=== PATIENT | male | born 1950 | race Caucasian/White ===

== ENCOUNTER 2023-10-04 12:33 | Inpatient (IN) | payer BC, MEDICARE ==
--- NOTE | 2023-10-04 12:54 | ED ---
Arrhythmia/Palpitations HPI - General Stated Complaint: Afib Time Seen by Provider: 10/04/23 12:33 Source: patient, EMS, RN notes reviewed Mode of arrival: EMS Limitations: no limitations - History of Present Illness Initial Comments: 73-year-old male non-smoker with history of hypertension who states he had the onset this morning of some tingly feeling across his chest some diaphoresis he just did not feel well he reported to the local fire station and was found to have A-fib with RVR with heart rate ranging from the 120s to the 160s. No prior history of heart disease again he never smoked does not drink no new changes medications no illnesses no other current complaints or modifying factors. MD Complaint: rapid heart beat, atrial fibrillation - Related Data Allergies Allergy/AdvReac Type Severity Reaction Status Date / Time codeine AdvReac Nausea & Verified 10/04/23 12:50 Vomiting Review of Systems ROS Statement: Those systems with pertinent positive or pertinent negative responses have been documented in the HPI. ROS Other: All systems not noted in ROS Statement are negative. Past Medical History Past Medical History: Hypertension History of Any Multi-Drug Resistant Organisms: None Reported Past Surgical History: Orthopedic Surgery Smoking Status: Never smoker Past Alcohol Use History: None Reported Past Drug Use History: None Reported General Exam - General Exam Comments Initial Comments: This is a well-developed well-nourished awake alert oriented x 4 male Limitations: no limitations General appearance: alert, in no apparent distress Head exam: Present: atraumatic, normocephalic, normal inspection Eye exam: Present: normal appearance, PERRL, EOMI. Absent: scleral icterus, conjunctival injection, periorbital swelling ENT exam: Present: normal exam, mucous membranes moist Neck exam: Present: normal inspection, full ROM, other (No stridor JVD or bruits). Absent: tenderness, meningismus, lymphadenopathy Respiratory exam: Present: normal lung sounds bilaterally. Absent: respiratory distress, wheezes, rales, rhonchi, stridor Cardiovascular Exam: Present: tachycardia, irregular rhythm. Absent: systolic murmur, diastolic murmur, rubs, gallop, clicks GI/Abdominal exam: Present: soft, normal bowel sounds. Absent: distended, tenderness, guarding, rebound, rigid, bruit, pulsatile mass Extremities exam: Present: normal inspection, full ROM, normal capillary refill. Absent: tenderness, pedal edema, joint swelling, calf tenderness Back exam: Present: normal inspection Neurological exam: Present: alert, oriented X3, CN II-XII intact Psychiatric exam: Present: normal affect, normal mood Skin exam: Present: warm, dry, intact, normal color. Absent: rash Course Vital Signs 10/04/23 12:46 Temperature 97.1 F L Pulse Rate 142 H Respiratory 20 Rate Blood Pressure 155/105 O2 Sat by Pulse 96 Oximetry Medical Decision Making - Medical Decision Making Patient has improved with respect to heart rate but he is still in atrial fibrillation with rate bouncing between the 100s and 120s occasionally 130s much improved from the arrival. I did have a discussion with him regarding the findings thus far patient will be admitted with cardiology consultation. Was pt. sent in by a medical professional or institution ([facility], [facility], urgent care, hospital, or senior living...) When possible be specific @ -No Did you speak to anyone other than the patient for history (EMS, parent, family, police, friend...)? What history was obtained from this source @ -Paramedics upon arrival Did you review nursing and triage notes (agree or disagree)? Why? @ -I reviewed and agree with nursing and triage notes Were old charts reviewed (outside hosp., previous admission, EMS record, old EKG, old radiological studies, urgent care reports/EKG's, senior living records)? Report findings @ -No old charts were reviewed Differential Diagnosis (chest pain, altered mental status, abdominal pain women, abdominal pain men, vaginal bleeding, weakness, fever, dyspnea, syncope, headache, dizziness, GI bleed, back pain, seizure, CVA, palpatations, mental health, musculoskeletal)? @ -Rapid atrial fibrillation, atypical chest pain EKG interpreted by me (3pts min.). @ -As above EKG interpreted by me atrial fibrillation with a rapid ventricular response rate was 134 QRS duration 86 QT/QTc 285/364 nonspecific inferior changes PVCs noted X-rays interpreted by me (1pt min.). @ -Chest x-ray interpreted by me negative for acute process CT interpreted by me (1pt min.). @ -None done U/S interpreted by me (1pt. min.). @ -None done What testing was considered but not performed or refused? (CT, X-rays, U/S, labs)? Why? @ -None What meds were considered but not given or refused? Why? @ -None Did you discuss the management of the patient with other professionals (professionals i.e. , PA, [facility], lab, RT, psych nurse, social media project manager, supervisor farm equipment maintenance, teacher, correctional officer chief, family service caseworker)? Give summary @ -Dr. Meyer Was smoking cessation discussed for >3mins.? @ -No Was critical care preformed (if so, how long)? @ -35 minutes Were there social determinants of health that impacted care today? How? (Homelessness, low income, unemployed, alcoholism, drug addiction, transportation, low edu. Level, literacy, decrease access to med. care, senior care, rehab)? @ -No Was there de-escalation of care discussed even if they declined (Discuss DNR or withdrawal of care, Hospice)? DNR status @ -No What co-morbidities impacted this encounter? (DM, HTN, Smoking, COPD, CAD, Cancer, CVA, ARF, Chemo, Hep., AIDS, mental health diagnosis, sleep apnea, morbid obesity)? @ -Hypertension Was patient admitted / discharged? Hospital course, mention meds given and route, prescriptions, significant lab abnormalities, going to OR and other pertinent info. @ -Hospital course patient was admitted for inpatient evaluation and treatment for A-fib RVR Undiagnosed new problem with uncertain prognosis? @ -No Drug Therapy requiring intensive monitoring for toxicity (Heparin, Nitro, Insulin, Cardizem)? @ -No Were any procedures done? @ -No Diagnosis/symptom? @ -Fibrillation with a rapid ventricular response, hyperglycemia, history of hypertension Acute, or Chronic, or Acute on Chronic? @ -Acute Uncomplicated (without systemic symptoms) or Complicated (systemic symptoms)? @ -Complicated Side effects of treatment? @ -No Exacerbation, Progression, or Severe Exacerbation? @ -No Poses a threat to life or bodily function? How? (Chest pain, [place], CA, pneumonia, PE, COPD, DKA, ARF, appy, cholecystitis, CVA, Diverticulitis, Homicidal, Suicidal, threat to staff... and all critical care pts) @ -Potential, A-fib with RVR - Lab Data Result diagrams: 10/04/23 12:50 10/04/23 12:50 Lab Results 10/04/23 10/04/23 10/04/23 Range/Units 12:50 12:50 12:50 WBC 9.7 (3.8-10.6) k/uL RBC 5.36 (4.30-5.90) m/uL Hgb 15.6 (13.0-17.5) gm/dL Hct 50.5 (39.0-53.0) % MCV 94.2 (80.0-100.0) fL MCH 29.1 (25.0-35.0) pg MCHC 30.9 L (31.0-37.0) g/dL RDW 14.3 (11.5-15.5) % Plt Count 325 (150-450) k/uL MPV 7.4 Neutrophils % 68 % Lymphocytes % 16 % Monocytes % 10 % Eosinophils % 1 % Basophils % 1 % Neutrophils # 6.6 (1.3-7.7) k/uL Lymphocytes # 1.6 (1.0-4.8) k/uL Monocytes # 1.0 (0-1.0) k/uL Eosinophils # 0.1 (0-0.7) k/uL Basophils # 0.1 (0-0.2) k/uL PT 9.9 L (10.0-12.5) sec INR 0.9 (<1.2) APTT 22.2 (22.0-30.0) sec D-Dimer 0.39 (<0.60) mg/L FEU Sodium 144 (137-145) mmol/L Potassium 4.3 (3.5-5.1) mmol/L Chloride 105 (98-107) mmol/L Carbon Dioxide 28 (22-30) mmol/L Anion Gap 11 mmol/L BUN 25 H (9-20) mg/dL Creatinine 1.24 (0.66-1.25) mg/dL Est GFR (CKD-EPI)AfAm 68 (>60 ml/min/1.73 sqM) Est GFR (CKD-EPI)NonAf 59 (>60 ml/min/1.73 sqM) Glucose 154 H (74-99) mg/dL Calcium 10.3 H (8.4-10.2) mg/dL Magnesium 1.9 (1.6-2.3) mg/dL Total Bilirubin 0.8 (0.2-1.3) mg/dL AST 26 (17-59) U/L ALT 34 (4-49) U/L Alkaline Phosphatase 85 (38-126) U/L Troponin I (0.000-0.034) ng/mL Total Protein 8.1 (6.3-8.2) g/dL Albumin 4.9 (3.5-5.0) g/dL TSH 2.450 (0.465-4.680) mIU/L 10/04/23 Range/Units 12:50 WBC (3.8-10.6) k/uL RBC (4.30-5.90) m/uL Hgb (13.0-17.5) gm/dL Hct (39.0-53.0) % MCV (80.0-100.0) fL MCH (25.0-35.0) pg MCHC (31.0-37.0) g/dL RDW (11.5-15.5) % Plt Count (150-450) k/uL MPV Neutrophils % % Lymphocytes % % Monocytes % % Eosinophils % % Basophils % % Neutrophils # (1.3-7.7) k/uL Lymphocytes # (1.0-4.8) k/uL Monocytes # (0-1.0) k/uL Eosinophils # (0-0.7) k/uL Basophils # (0-0.2) k/uL PT (10.0-12.5) sec INR (<1.2) APTT (22.0-30.0) sec D-Dimer (<0.60) mg/L FEU Sodium (137-145) mmol/L Potassium (3.5-5.1) mmol/L Chloride (98-107) mmol/L Carbon Dioxide (22-30) mmol/L Anion Gap mmol/L BUN (9-20) mg/dL Creatinine (0.66-1.25) mg/dL Est GFR (CKD-EPI)AfAm (>60 ml/min/1.73 sqM) Est GFR (CKD-EPI)NonAf (>60 ml/min/1.73 sqM) Glucose (74-99) mg/dL Calcium (8.4-10.2) mg/dL Magnesium (1.6-2.3) mg/dL Total Bilirubin (0.2-1.3) mg/dL AST (17-59) U/L ALT (4-49) U/L Alkaline Phosphatase (38-126) U/L Troponin I <0.012 (0.000-0.034) ng/mL Total Protein (6.3-8.2) g/dL Albumin (3.5-5.0) g/dL TSH (0.465-4.680) mIU/L Critical Care Time Critical Care Time: Yes Total Critical Care Time: 35 Disposition Clinical Impression: Atrial fibrillation with rapid ventricular response, Hyperglycemia, History of hypertension Disposition: ADMITTED IP TO THIS HOSP Condition: Fair Referrals: Pierre Meyer MD [Primary Care Provider] - 1-2 days Time of Disposition: 14:06 Decision Date: 10/04/23 Decision Time: 14:06
[2023-10-04 13:07] LABS: Basophils # (A) 0.1 k/uL (0-0.2); Basophils % (A) 1 %; Eosinophils # (A) 0.1 k/uL (0-0.7); Eosinophils % (A) 1 %; HCT 50.5 % (39.0-53.0); HGB 15.6 gm/dL (13.0-17.5); Lymphocytes # (A) 1.6 k/uL (1.0-4.8); Lymphocytes % (A) 16 %; MCH 29.1 pg (25.0-35.0); MCHC 30.9 g/dL (31.0-37.0); MCV 94.2 fL (80.0-100.0); Mean Platelet Volume 7.4; Monocytes % (A) 10 %; Neutrophils # (A) 6.6 k/uL (1.3-7.7); Neutrophils % (A) 68 %; Platelet Count 325 k/uL (150-450); RBC 5.36 m/uL (4.30-5.90); RDW 14.3 % (11.5-15.5); WBC 9.7 k/uL (3.8-10.6)
[2023-10-04] MEDS: ASPIRIN 81 MG PO STA (13:08)
[2023-10-04] MEDS: DILTIAZEM DRIP BOLUS FROM BAG 1 MG SOLN IV ONE (13:10)
[2023-10-04] MEDS: DILTIAZEM 125 MG in SODIUM CHLORIDE 0.9% 100 ML IV SCH ×2 (13:10→15:10)
[2023-10-04 13:17] LABS: INR 0.9 (<1.2); Partial Thromboplastin Time 22.2 sec (22.0-30.0); Prothrombin Time 9.9 sec (10.0-12.5)
--- NOTE | 2023-10-04 13:20 | XR ---
EXAMINATION TYPE: XR chest 2V DATE OF EXAM: 10/04/2023 COMPARISON: None HISTORY: 73-year-old male dysrhythmia TECHNIQUE: PA and lateral views FINDINGS: The cardiomediastinal silhouette, aorta, and pulmonary vasculature are within normal limits. Lungs an d pleural spaces are clear. IMPRESSION: No acute cardiopulmonary process.
[2023-10-04 13:24] LABS: ALT 34 U/L (4-49); AST 26 U/L (17-59); African American GFR (CKD) 68 (>60 ml/min/1.73 sqM); Albumin 4.9 g/dL (3.5-5.0); Alkaline Phosphatase 85 U/L (38-126); Anion Gap 11 mmol/L; Blood Urea Nitrogen 25 mg/dL (9-20); Calcium 10.3 mg/dL (8.4-10.2); Carbon Dioxide 28 mmol/L (22-30); Chloride 105 mmol/L (98-107); Glucose 154 mg/dL (74-99); Magnesium 1.9 mg/dL (1.6-2.3); Non-African American GFR(CKD) 59 (>60 ml/min/1.73 sqM); Potassium 4.3 mmol/L (3.5-5.1); Sodium 144 mmol/L (137-145); Total Bilirubin 0.8 mg/dL (0.2-1.3); Total Protein 8.1 g/dL (6.3-8.2)
[2023-10-04] MEDS ORDERED: NALOXONE 0.4 MG/ML 1 ML VIAL IV PRN (14:07)
[2023-10-04] MEDS ORDERED: HEPARIN SODIUM 1,000 UN/ML (10ML VL) IV PRN (14:12)
[2023-10-04] MEDS: SODIUM CHLORIDE 0.9% 1,000 ML IV SCH (15:08)
[2023-10-04] MEDS: HEPARIN SODIUM 1,000 UN/ML (10ML VL) IV ONE (15:12)
[2023-10-04] MEDS: HEPARIN SOD,PORK IN 0.45% NACL 25,000 UNIT in 0.45% NACL 1 250ML.BAG IV SCH (15:12)
[2023-10-04 16:47] LABS: Basophils # (A) 0.1 k/uL (0-0.2); Basophils % (A) 1 %; Eosinophils # (A) 0.1 k/uL (0-0.7); Eosinophils % (A) 1 %; HCT 45.8 % (39.0-53.0); HGB 13.8 gm/dL (13.0-17.5); Hypochromasia Slight; Lymphocytes # (A) 1.4 k/uL (1.0-4.8); Lymphocytes % (A) 13 %; MCH 28.9 pg (25.0-35.0); MCHC 30.2 g/dL (31.0-37.0); MCV 95.8 fL (80.0-100.0); Mean Platelet Volume 7.7; Monocytes # (A) 0.6 k/uL (0-1.0); Monocytes % (A) 6 %; Neutrophils # (A) 8.3 k/uL (1.3-7.7); Neutrophils % (A) 76 %; Platelet Count 291 k/uL (150-450); RBC 4.78 m/uL (4.30-5.90); RDW 14.4 % (11.5-15.5); WBC 10.8 k/uL (3.8-10.6)
[2023-10-04] MEDS ORDERED: ALBUTEROL NEBULIZED 2.5 MG/3 ML INHALATION PRN (17:51)
--- NOTE | 2023-10-04 19:23 | P.HPIM ---
History of Present Illness H&P Date: 10/04/23 Chief Complaint: A-fib with RVR, shortness of breath, palpitation, type 2 di abetes, chronic HISTORY OF PRESENT ILLNESS: 73-year-old one of my office patient with active history of Type 2 diabetes, asthma, hypertension, hyperlipidemia, chronic neuropathy, mild PAD with never been diagnosed with coronary artery disease in the past. 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 He is very compliant to his medication and reconstruction he apparently had an onset this morning of tingly feeling across his chest with some diaphoresis and slight shortness of breath with mild palpitation he went to the local fire station where was hooked to a heart monitor and found to be very irregular with pulse rate running around 120s to 160 beats per minutes was advised to go to the emergency department. Presented to the emergency department with above complaint his pulse rate on his EKG was to be around 130 was started on Cardizem drip brought the pulse rate down to 70s still slightly bit irregular. Laboratory evaluation showed normal WBC, hemoglobin, hematocrit, electrolyte and kidney function, troponin was normal no BNP was done thyroid test and magnesium were done as well were normal calcium level was slightly bit elevated 10.3 with a blood sugar at 154. Chest x-ray shows no infiltrate or pneumonia no cardiomegaly. Patient was started on heparin drip beside Cardizem drip and admitted to the hospital for the above complaint. REVIEW OF SYSTEMS: CONSTITUTIONAL: Well-developed no acute respiratory distress. EYES: No icterus sclerae, no conjunctivitis. EARS, NOSE, MOUTH, THROAT, and FACE: No sore throat, lymphadenopathy, carotid bruits or deformity. RESPIRATORY: Slight shortness of breath no cough or wheezes.. CARDIOVASCULAR: Positive chest pressure and discomfort positive PND orthopnea palpitation. GASTROINTESTINAL: No Abd pain, Nausea or vomiting, no Diarrhea or constipation, No GI Bleed, no distention or masses. GENITOURINARY: Negative for Hematuria or UTI, no kidney stones. INTEGUMENT/BREAST: Negative for any muscular injury with mild osteoarthritis.. HEMATOLOGIC/LYMPHATIC: Negative for bleed or purpura. MUSCULOSKELTAL: Negative for Myalgia or arthralgia. NEURLOGICAL: No LOC, Sz or syncope, blurred vision dizziness or abnormality.. Mild neuropathy sensation lower extremity. BEHAVIORAL/PSYCH: Negative. ENDOCRINE: Negative. PHYSICAL EXAMINATION: General Appearance: Alert, cooperative, no distress, appears stated age. Neck HEENT: Supple, no lymphadenopathy, no thyroid enlargement, no carotid bruits. Lungs: Clear to auscultation without crackles or wheezes no rhonchi, no deformity. Chest Wall: Chest wall normal expansion with deep inspiration no tenderness and no deformity was found on exam, no costochondral pain or discomfort. Heart: Irregular rate and rhythm, S1, S2 positive S3, very low-grade systolic murmur in the apex radiating toward the left second costal space. Back: Symmetric, no curvature, ROM normal, no CVA tenderness. Abdomen: Soft, non-tender, bowel sounds active all four quadrants, no masses, no organomegaly. Extremities: Extremities normal, atraumatic, no cyanosis or edema. Slight lack of sensation on the big toe. Pulses: 2+ and symmetric. Skin: Skin color, texture, tugor normal, no rashes or lesions. Neurologic: Alert oriented x3 cranial nerves II through XII intact, no motor deficit, no abnormal balance or gait. ASSESSMENT AND PLAN: _Atrial fibrillation with rapid ventricular response: As a new onset patient never had A-fib in the past, continue Cardizem drip will start metoprolol succinate 25 mg Also Eliquis 5 mg twice a day to be started tomorrow morning and to quit heparin drip 2 hours after starting Eliquis, patient be seen cardiology, continue manager cardiac cath, CK troponin and BNP will be done in the morning. _Atypical angina with slight pressure discomfort: CK troponin was negative no ST elevation this point echocardiogram will be ordered in the morning patient be seen cardiology eventually need to go for stress test as well. _Type 2 diabetes: Has been on Farxiga and metformin hold off on metformin for no w continue glimepiride 2 mg daily Accu-Chek with sliding scale coverage will be done. _Hypertension: Was on lisinopril HCTZ 20/25 mg daily continue medication with the addition of metoprolol will be more helpful. _Hyperlipidemia: Remain on atorvastatin 20 mg daily. _Stage II chronic kidney disease mostly stage creatinine was good today continue hydration watch kidney function by tomorrow continue to watch his urine output. _Mild peripheral arterial disease has been seen cardiology on medical management only. _Mild diabetic neuropathy: Not on any medication currently. _Asthma: Remain on Singulair and Xopenex inhaler. _GI prophylaxis: Patient will be on pantoprazole daily. _DVT prophylaxis: Was on heparin drip will be switched to Eliquis tomorrow. CODE STATUS: Full code. Admit patient to the inpatient service for more than 2 night stay. Past Medical History Past Medical History: Hyperlipidemia, Hypertension, Osteoarthritis (OA) Additional Past Medical History / Comment(s): Small carotid tear History of Any Multi-Drug Resistant Organisms: None Reported Past Surgical History: Heart Catheterization, Orthopedic Surgery Additional Past Surgical History / Comment(s): Bilateral shoulders. Cataracts bilateral Past Anesthesia/Blood Transfusion Reactions: No Reported Reaction Smoking Status: Never smoker Past Alcohol Use History: None Reported Past Drug Use History: None Reported - Past Family History Mother Additional Family Medical History / Comment(s): Stroke at 87 and epilespy Medications and Allergies Home Medications Medication Instructions Recorded Confirmed Type Atorvastatin [Lipitor] 20 mg PO DAILY 10/04/23 10/04/23 History Dapagliflozin Propanediol [Farxiga] 10 mg PO DAILY 10/04/23 10/04/23 History Glimepiride [Amaryl] 2 mg PO DAILY 10/04/23 10/04/23 History Levalbuterol Hfa Inhaler [Xopenex 2 puff INHALATION RT-Q6H PRN 10/04/23 10/04/23 History Hfa Inhaler] Lisinopril-Hctz 20-25 mg 1 tab PO DAILY 10/04/23 10/04/23 History [Zestoretic 20-25] Montelukast [Singulair] 10 mg PO HS 10/04/23 10/04/23 History metFORMIN HCL 1,000 mg PO BID 10/04/23 10/04/23 History Allergies Allergy/AdvReac Type Severity Reaction Status Date / Time codeine AdvReac Nausea & Verified 10/04/23 15:04 Vomiting Physical Exam Vitals: Vital Signs Temp Pulse Pulse Resp BP BP Pulse Ox 10/04/23 17:00 91 18 129/87 97 10/04/23 16:00 98 F 114 H 98 16 136/83 98 10/04/23 14:51 114 H 18 115/77 96 10/04/23 12:46 97.1 F L 142 H 20 155/105 96 Intake and Output 10/04/23 10/04/23 10/04/23 06:59 14:59 22:59 Intake Total 10 Balance 10 Intake: Intake, IV Titration 10 Amount Diltiazem 125 mg In 10 Sodium Chloride 0.9% 100 ml @ 5 MG/HR 5 mls/hr IV .Q24H [facility] Rx#:[id number] Other: Weight 72.575 kg 72.575 kg Results CBC & Chem 7: 10/04/23 16:05 10/04/23 12:50 Labs: Abnormal Lab Results - Last 24 Hours (Table) 10/04/23 10/04/23 10/04/23 Range/Units 12:50 12:50 12:50 WBC (3.8-10.6) k/uL MCHC 30.9 L (31.0-37.0) g/dL Neutrophils # (1.3-7.7) k/uL PT 9.9 L (10.0-12.5) sec BUN 25 H (9-20) mg/dL Glucose 154 H (74-99) mg/dL Calcium 10.3 H (8.4-10.2) mg/dL 10/04/23 Range/Units 16:05 WBC 10.8 H (3.8-10.6) k/uL MCHC 30.2 L (31.0-37.0) g/dL Neutrophils # 8.3 H (1.3-7.7) k/uL PT (10.0-12.5) sec BUN (9-20) mg/dL Glucose (74-99) mg/dL Calcium (8.4-10.2) mg/dL Thrombosis Risk Factor Assmnt - Choose All That Apply Each Factor Represents 1 point: Obesity (BMI >25) Each Risk Factor Represents 2 Points: Age 61-74 years Thrombosis Risk Factor Assessment Total Risk Factor Score: 3 Thrombosis Risk Factor Assessment Level: Moderate Risk
[2023-10-04 20:08] LABS: Glucose,Whole Blood 206 mg/dL (70-110)
[2023-10-04] MEDS: METOPROLOL SUCCINATE (ER) 25 MG TAB.ER.24H PO SCH (20:48)
[2023-10-04] MEDS: MONTELUKAST 10 MG TAB PO SCH (20:48)
[2023-10-04] MEDS: INSULIN ASPART (NovoLOG) 100 UNIT/ML VIAL SQ SCH (20:49)
[2023-10-04] MEDS ORDERED: INSULIN ASPART (NovoLOG) 100 UNIT/ML VIAL SQ SCH (21:00)
[2023-10-05 05:21] LABS: INR 0.9 (<1.2); Prothrombin Time 10.2 sec (10.0-12.5)
[2023-10-05 05:32] LABS: HCT 42.2 % (39.0-53.0); HGB 13.3 gm/dL (13.0-17.5); MCH 29.9 pg (25.0-35.0); MCHC 31.6 g/dL (31.0-37.0); MCV 94.8 fL (80.0-100.0); Mean Platelet Volume 7.8; Platelet Count 261 k/uL (150-450); RBC 4.45 m/uL (4.30-5.90); RDW 14.3 % (11.5-15.5); WBC 6.9 k/uL (3.8-10.6)
[2023-10-05 05:37] LABS: ALT 30 U/L (4-49); AST 24 U/L (17-59); African American GFR (CKD) 77 (>60 ml/min/1.73 sqM); Albumin 3.6 g/dL (3.5-5.0); Alkaline Phosphatase 64 U/L (38-126); Anion Gap 5 mmol/L; Blood Urea Nitrogen 23 mg/dL (9-20); Calcium 8.8 mg/dL (8.4-10.2); Carbon Dioxide 30 mmol/L (22-30); Chloride 107 mmol/L (98-107); Glucose 125 mg/dL (74-99); Non-African American GFR(CKD) 67 (>60 ml/min/1.73 sqM); Potassium 4.2 mmol/L (3.5-5.1); Sodium 142 mmol/L (137-145); Total Bilirubin 0.9 mg/dL (0.2-1.3)
[2023-10-05 05:55] LABS: Eosinophils # (M) 0.07 k/uL (0-0.7); Lymphocytes # (M) 1.73 k/uL (1.0-4.8); Monocytes # (M) 0.41 k/uL (0-1.0); Neutrophils # (M) 4.69 k/uL (1.3-7.7); Neutrophils % (M) 68 %; Nucleated Red Blood Cells 0 /100 WBC (0-0); Total Cells Counted 100
[2023-10-05 05:56] LABS: RBC Morphology Normal
[2023-10-05 06:17] LABS: Glucose,Whole Blood 136 mg/dL (70-110)
[2023-10-05] MEDS: PANTOPRAZOLE 40 MG TABLET PO SCH (06:24)
[2023-10-05] MEDS: APIXABAN 5 MG TAB PO SCH (06:24)
[2023-10-05] MEDS: ATORVASTATIN 20 MG TAB PO SCH (08:30)
[2023-10-05] MEDS: LISINOPRIL-HCTZ 20-25 MG 1 EACH TAB PO SCH (08:30)
[2023-10-05] MEDS: METOPROLOL SUCCINATE (ER) 25 MG TAB.ER.24H PO SCH (08:30)
[2023-10-05] MEDS: DAPAGLIFLOZIN PROPANEDIOL 10 MG TABLET PO SCH (08:30)
[2023-10-05] MEDS: GLIMEPIRIDE 2 MG TAB PO SCH (08:30)
--- NOTE | 2023-10-05 08:30 | P.PN ---
Subjective Progress Note Date: 10/05/23 HISTORY OF PRESENT ILLNESS: 73-year-old one of my office patient with active history of Type 2 diabetes, asthma, hypertension, hyperlipidemia, chronic neuropathy, mild PAD with never been diagnosed with coronary artery disease in the past. Patient is very active volunteering at a [employer] on daily basis and still have a part-time job working over 40 hours a week between the 2 jobs without any complaint of chest pain or tightness. He is very compliant to his medication and reconstruction he apparently had an onset this morning of tingly feeling across his chest with some diaphoresis and slight shortness of breath with mild palpitation he went to the local [employer] station where was hooked to a heart monitor and found to be very irregular with pulse rate running around 120s to 160 beats per minutes was advised to go to the emergency department. Presented to the emergency department with above complaint his pulse rate on his EKG was to be around 130 was started on Cardizem drip brought the pulse rate down to 70s still slightly bit irregular. Laboratory evaluation showed normal WBC, hemoglobin, hematocrit, electrolyte and kidney function, troponin was n ormal no BNP was done thyroid test and magnesium were done as well were normal calcium level was slightly bit elevated 10.3 with a blood sugar at 154. Chest x-ray shows no infiltrate or pneumonia no cardiomegaly. Patient was started on heparin drip beside Cardizem drip and admitted to the hospital for the above complaint. October 05, 2023: Is doing very well pulse rate is down in the 70s still irregular he had 1 dose of metoprolol succinate yesterday he was switched to Eliquis 5 mg twice a day start this morning his heparin drip will be stopped also. His Cardizem drip Agree with the second dose of metoprolol succinate in the morning. He is scheduled to see cardiology and he is ct require to go for stress test whether this is need to be done as an inpatient or outpatient and will be rapid cardiology. Blood pressure was slightly low his lisinopril and hydrochlorothiazide can be reduced to 10/12.5 mg instead of 20 mg. Patient will be discharged either later today or tomorrow morning. REVIEW OF SYSTEMS: CONSTITUTIONAL: Well-developed no acute respiratory distress. EYES: No icterus sclerae, no conjunctivitis. EARS, NOSE, MOUTH, THROAT, and FACE: No sore throat, lymphadenopathy, carotid bruits or deformity. RESPIRATORY: Slight shortness of breath no cough or wheezes.. CARDIOVASCULAR: Positive chest pressure and discomfort positive PND orthopnea palpitation. GASTROINTESTINAL: No Abd pain, Nausea or vomiting, no Diarrhea or constipation, No GI Bleed, no distention or masses. GENITOURINARY: Negative for Hematuria or UTI, no kidney stones. INTEGUMENT/BREAST: Negative for any muscular injury with mild osteoarthritis.. HEMATOLOGIC/LYMPHATIC: Negative for bleed or purpura. MUSCULOSKELTAL: Negative for Myalgia or arthralgia. NEURLOGICAL: No LOC, Sz or syncope, blurred vision dizziness or abnormality.. Mild neuropathy sensation lower extremity. BEHAVIORAL/PSYCH: Negative. ENDOCRINE: Negative. PHYSICAL EXAMINATION: General Appearance: Alert, cooperative, no distress, appears stated age. Neck HEENT: Supple, no lymphadenopathy, no thyroid enlargement, no carotid bruits. Lungs: Clear to auscultation without crackles or wheezes no rhonchi, no deformity. Chest Wall: Chest wall normal expansion with deep inspiration no tenderness and no deformity was found on exam, no costochondral pain or discomfort. Heart: Irregular rate and rhythm, S1, S2 positive S3, very low-grade systolic murmur in the apex radiating toward the left second costal space. Back: Symmetric, no curvature, ROM normal, no CVA tenderness. Abdomen: Soft, non-tender, bowel sounds active all four quadrants, no masses, no organomegaly. Extremities: Extremities normal, atraumatic, no cyanosis or edema. Slight lack of sensation on the big toe. Pulses: 2+ and symmetric. Skin: Skin color, texture, tugor normal, no rashes or lesions. Neurologic: Alert oriented x3 cranial nerves II through XII intact, no motor deficit, no abnormal balance or gait. ASSESSMENT AND PLAN: _Atrial fibrillation with rapid ventricular response: Much better so far continue metoprolol succinate up to twice a day will be off Cardizem drip today continue Eliquis 5 mg twice a day as any medication. Patient is seeing cardiology further workup including an echo and stress test to be done. _Atypical angina with slight pressure discomfort: CK with troponin were negative but patient will benefit from going for stress test specially with his complaint. _Type 2 diabetes: Has been on Farxiga and metformin hold off on metformin for n ow continue glimepiride 2 mg daily Accu-Chek with sliding scale coverage will be done. _Hypertension: Blood pressure becomes slightly below will reduce lisinopril down to 10 mg and he is on Toprol-XL 25 mg twice a day. _Hyperlipidemia: Remain on atorvastatin 20 mg daily. _Stage II chronic kidney disease mostly stage creatinine was good today continue hydration watch kidney function by tomorrow continue to watch his urine output. _Mild peripheral arterial disease has been seen cardiology on medical management only. _Mild diabetic neuropathy: Not on any medication currently. _Asthma: Remain on Singulair and Xopenex inhaler. _GI prophylaxis: Patient will be on pantoprazole daily. Planning: Switch IV medication to oral with metoprolol succinate 25 mg twice a day off Cardizem drip and off heparin drip on Eliquis 5 mg twice a day, patient will have an echocardiogram will be seen cardiology and plan hopefully to do stress test as an inpatient if not can be discharged home and do stress test as an outpatient but with sign and symptom he had of angina with his A-fib will be a good idea to study his heart slight with to make sure is no sign of blockage or coronary artery disease. Many occasion patient hopefully will be discharged either later on today or tomorrow morning. Objective - Vital Signs Vital signs: Vital Signs Temp 98.0 F 10/05/23 04:00 Pulse 66 10/05/23 04:00 Resp 18 10/05/23 04:00 BP 93/51 10/05/23 04:00 Pulse Ox 97 10/05/23 04:00 FiO2 Intake & Output 10/04/23 10/04/23 10/05/23 06:59 18:59 06:59 Intake Total 10 214.866 Balance 10 214.866 Weight 72.575 kg Intake: Intake, IV Titration 10 214.866 Amount Diltiazem 125 mg In 10 80.5 Sodium Chloride 0.9% 100 ml @ 5 MG/HR 5 mls/hr IV .Q24H [facility] Rx#:[id number] Heparin Sod,Pork in 0.45% 59.366 NaCl 25,000 unit In 0.45 % NaCl 1 250ml.bag @ 12 UNITS/KG/HR 8.709 mls/hr IV .Q24H [facility] Rx#: [id number] Sodium Chloride 0.9% 1, 75 000 ml @ 75 mls/hr IV . [id number] [facility] Rx#:[id number] Other: Voiding Method Toilet # Voids 1 - Labs CBC & Chem 7: 10/05/23 04:07 10/05/23 04:07 Labs: Abnormal Lab Results - Last 24 Hours (Table) 10/04/23 10/04/23 10/04/23 Range/Units 12:50 12:50 12:50 WBC (3.8-10.6) k/uL MCHC 30.9 L (31.0-37.0) g/dL Neutrophils # (1.3-7.7) k/uL PT 9.9 L (10.0-12.5) sec APTT (22.0-30.0) sec BUN 25 H (9-20) mg/dL Glucose 154 H (74-99) mg/dL POC Glucose (mg/dL) (70-110) mg/dL Calcium 10.3 H (8.4-10.2) mg/dL Total Protein (6.3-8.2) g/dL 10/04/23 10/04/23 10/04/23 Range/Units 16:05 20:06 21:08 WBC 10.8 H (3.8-10.6) k/uL MCHC 30.2 L (31.0-37.0) g/dL Neutrophils # 8.3 H (1.3-7.7) k/uL PT (10.0-12.5) sec APTT 42.5 H (22.0-30.0) sec BUN (9-20) mg/dL Glucose (74-99) mg/dL POC Glucose (mg/dL) 206 H (70-110) mg/dL Calcium (8.4-10.2) mg/dL Total Protein (6.3-8.2) g/dL 10/05/23 10/05/23 10/05/23 Range/Units 04:07 04:07 06:16 WBC (3.8-10.6) k/uL MCHC (31.0-37.0) g/dL Neutrophils # (1.3-7.7) k/uL PT (10.0-12.5) sec APTT 49.5 H (22.0-30.0) sec BUN 23 H (9-20) mg/dL Glucose 125 H (74-99) mg/dL POC Glucose (mg/dL) 136 H (70-110) mg/dL Calcium (8.4-10.2) mg/dL Total Protein 6.0 L (6.3-8.2) g/dL
[2023-10-05 11:19] LABS: Glucose,Whole Blood 199 mg/dL (70-110)
--- NOTE | 2023-10-05 14:18 | P.CRDCN ---
History of Present Illness Consult date: 10/05/23 Consult reason: atrial fibrillation (With RVR) History of present illness: History of present illness: This is a 73-year-old male patient of Dr. Martinez with past medical history of diabetes mellitus type 2, hypertension, dyslipidemia, mild carotid artery disease, history of syncope. We have been asked to evaluate the patient for A- fib with RVR. Patient was last seen in the office on 03/02/2023 following a hospitalization at [facility] for which she was evaluated for syncope. Patient was complaining of feeling tired and fatigued. Patient had an abnormal EKG with sinus rhythm with inferior T wave abnormalities. It was r ecommended at that time that patient undergo exercise stress echocardiogram but it appears the patient did not have follow-up. Patient will presented with A- fib with RVR currently rate controlled. He has been started on Toprol-XL as well as Eliquis and echocardiogram has also been ordered by his attending. EKG atrial fibrillation with ventricular rate of 134 bpm with PVCs Chest x-ray: No acute process. INR 0.9. Electrolytes are normal. BUN 23 creatinine 1.11. Troponins negative x 3 Schuyler. proBNP 666. Home cardiac medications: Atorvastatin 20 mg daily, Farxiga 10 mg daily, lisinoprilhydrochlorothiazide 20-25 mg 1 daily. Echocardiogram performed on 02/17/2023 at [facility] revealed EF of 55 to 60%, mild AR, mild MR, mild TR.. Review Of Systems: At the time of my exam: CONSTITUTIONAL: Denies fever or chills. HEENT: Denies blurred vision, vision changes, or eye pain. Denies hemoptysis CARDIOVASCULAR: Denies chest pain. Denies orthopnea. Denies PND. Denies palpitations RESPIRATORY: Denies shortness of breath. GASTROINTESTINAL: Denies abdominal pain. Denies nausea or vomiting. HEMATOLOGIC: Denies bleeding disorders. GENITOURINARY: Denies any blood in urine. SKIN: Denies pruitis. Denies rash. Physical examination: Gen: This is a 73-year-old male in no acute distress. VS: reviewed blood pressure 123/65, heart rate 67, pulse ox 97% on room air. WBC 6.9, hemoglobin 13.3. HEENT: Head is atraumatic, normocephalic. Pupils equal, round. Sclerae is anicteric. NECK: Supple. No JVD. LUNGS: Clear to auscultation. No wheezes or rhonchi. No intercostal retractio ns. HEART: Regular rate and rhythm. No murmur. ABDOMEN: Soft No tenderness. EXTREMITIES: No pedal edema. No calf tenderness. NEUROLOGICAL: Patient is awake, alert and oriented x3. Assessment: New onset paroxysmal A-fib with RVR, currently rate controlled Diabetes mellitus type 2 Hypertension Dyslipidemia Mild carotid artery disease History of syncope Plan: Continue patient's home cardiac medications Continue Eliquis and Toprol-XL Obtain 2-D echocardiogram and Doppler study to assess cardiac structure and function If echocardiogram is unremarkable, patient is cleared for discharge from ia rdiology and may follow-up with Dr. Martinez in the office in 1 to 2 weeks. Thank you kindly for this consultation. Nurse practitioner note has been reviewed, I agree with documented findings and plan of care. Patient was seen and examined. Past Medical History Past Medical History: Hyperlipidemia, Hypertension, Osteoarthritis (OA) Additional Past Medical History / Comment(s): Small carotid tear History of Any Multi-Drug Resistant Organisms: None Reported Past Surgical History: Heart Catheterization, Orthopedic Surgery Additional Past Surgical History / Comment(s): Bilateral shoulders. Cataracts bilateral Past Anesthesia/Blood Transfusion Reactions: No Reported Reaction Smoking Status: Never smoker Past Alcohol Use History: None Reported Past Drug Use History: None Reported - Past Family History Mother Additional Family Medical History / Comment(s): Stroke at 85 and epilespy Medications and Allergies Home Medications Medication Instructions Recorded Confirmed Type Atorvastatin [Lipitor] 20 mg PO DAILY 10/04/23 10/04/23 History Dapagliflozin Propanediol [Farxiga] 10 mg PO DAILY 10/04/23 10/04/23 History Glimepiride [Amaryl] 2 mg PO DAILY 10/04/23 10/04/23 History Levalbuterol Hfa Inhaler [Xopenex 2 puff INHALATION RT-Q6H PRN 10/04/23 10/04/23 History Hfa Inhaler] Lisinopril-Hctz 20-25 mg 1 tab PO DAILY 10/04/23 10/04/23 History [Zestoretic 20-25] Montelukast [Singulair] 10 mg PO HS 10/04/23 10/04/23 History metFORMIN HCL 1,000 mg PO BID 10/04/23 10/04/23 History Allergies Allergy/AdvReac Type Severity Reaction Status Date / Time codeine AdvReac Nausea & Verified 10/04/23 15:04 Vomiting Physical Exam Vitals: Vital Signs Temp Pulse Pulse Resp BP BP Pulse Ox 10/05/23 08:20 97.9 F 67 20 123/65 97 10/05/23 04:00 98.0 F 66 18 93/51 97 10/05/23 01:15 61 18 10/04/23 23:44 97.6 F 61 18 107/76 98 10/04/23 20:00 97.8 F 61 18 129/74 97 10/04/23 17:53 18 10/04/23 17:00 91 18 129/87 97 10/04/23 16:00 98 F 114 H 98 16 136/83 98 10/04/23 14:51 114 H 18 115/77 96 10/04/23 12:46 97.1 F L 142 H 20 155/105 96 Intake and Output 10/04/23 10/05/23 10/05/23 22:59 06:59 14:59 Intake Total 144.366 80.5 216.352 Balance 144.366 80.5 216.352 Intake: Intake, IV Titration 144.366 80.5 106.352 Amount Diltiazem 125 mg In 10 80.5 Sodium Chloride 0.9% 100 ml @ 5 MG/HR 5 mls/hr IV .Q24H [facility] Rx#:[id number] Heparin Sod,Pork in 0.45% 59.366 106.352 NaCl 25,000 unit In 0.45 % NaCl 1 250ml.bag @ 12 UNITS/KG/HR 8.709 mls/hr IV .Q24H [facility] Rx#: [id number] Sodium Chloride 0.9% 1, 75 000 ml @ 75 mls/hr IV . [id number] [facility] Rx#:[id number] Oral 110 Other: Voiding Method Toilet Toilet # Voids 1 1 Weight 72.575 kg Results 10/05/23 04:07 10/05/23 04:07 Cardiac Enzymes 10/04/23 10/04/23 10/04/23 Range/Units 12:50 12:50 16:05 AST 26 (17-59) U/L Troponin I <0.012 <0.012 (0.000-0.034) ng/mL 10/04/23 10/05/23 Range/Units 21:08 04:07 AST 24 (17-59) U/L Troponin I <0.012 (0.000-0.034) ng/mL Coagulation 10/04/23 10/04/23 10/05/23 Range/Units 12:50 21:08 04:07 PT 9.9 L 10.2 (10.0-12.5) sec APTT 22.2 42.5 H (22.0-30.0) sec 10/05/23 Range/Units 04:07 PT (10.0-12.5) sec APTT 49.5 H (22.0-30.0) sec CBC 10/04/23 10/04/23 10/05/23 Range/Units 12:50 16:05 04:07 WBC 9.7 10.8 H 6.9 (3.8-10.6) k/uL RBC 5.36 4.78 4.45 (4.30-5.90) m/uL Hgb 15.6 13.8 13.3 (13.0-17.5) gm/dL Hct 50.5 45.8 42.2 (39.0-53.0) % Plt Count 325 291 261 (150-450) k/uL Comprehensive Metabolic Panel 10/04/23 10/05/23 Range/Units 12:50 04:07 Sodium 144 142 (137-145) mmol/L Potassium 4.3 4.2 (3.5-5.1) mmol/L Chloride 105 107 (98-107) mmol/L Carbon Dioxide 28 30 (22-30) mmol/L BUN 25 H 23 H (9-20) mg/dL Creatinine 1.24 1.11 (0.66-1.25) mg/dL Glucose 154 H 125 H (74-99) mg/dL Calcium 10.3 H 8.8 (8.4-10.2) mg/dL AST 26 24 (17-59) U/L ALT 34 30 (4-49) U/L Alkaline Phosphatase 85 64 (38-126) U/L Total Protein 8.1 6.0 L (6.3-8.2) g/dL Albumin 4.9 3.6 (3.5-5.0) g/dL Current Medications Generic Name Dose Route Start Last Admin Trade Name Freq PRN Reason Stop Dose Admin Albuterol Sulfate 2.5 mg 10/04/23 17:51 Albuterol Nebulized 2.5 Mg/3 Ml INHALATION RT-Q6H PRN Shortness Of Breath Apixaban 5 mg 10/05/23 07:00 10/05/23 06:24 Apixaban 5 Mg Tab PO 5 mg BID [facility] Administration Protocol Atorvastatin Calcium 20 mg 10/05/23 09:00 10/05/23 08:30 Atorvastatin 20 Mg Tab PO 20 mg DAILY [facility] Administration Dapagliflozin 10 mg 10/05/23 09:00 10/05/23 08:30 Dapagliflozin Propanediol 10 Mg Tablet PO 10 mg DAILY [facility] Administration Glimepiride 2 mg 10/05/23 09:00 10/05/23 08:30 Glimepiride 2 Mg Tab PO 2 mg DAILY [facility] Administration Lisinopril/HCTZ 1 each 10/05/23 09:00 10/05/23 08:30 Lisinopril-Hctz 20-25 Mg 1 Each Tab PO 1 each DAILY [facility] Administration Heparin Sodium (Porcine) 0 unit 10/04/23 14:12 Heparin Sodium 1,000 Un/Ml (10ml Vl) IV PER PROTOCOL PRN Low PTT Protocol Diltiazem HCl 125 mg/ Sodium 125 mls @ 5 mls/hr 10/04/23 12:45 10/04/23 23:13 Chloride IV 5 mg/hr .Q24H [facility] 5 mls/hr Administration 5 MG/HR Sodium Chloride 1,000 mls @ 75 mls/hr 10/04/23 14:15 10/05/23 03:49 Saline 0.9% IV 75 mls/hr .[id number] [facility] Administration Diltiazem HCl 125 mg/ Sodium 125 mls @ 10 mls/hr 10/04/23 14:15 10/05/23 03:49 Chloride IV Not Given .[id number] [facility] 10 MG/HR Heparin Sodium/Sodium Chloride 250 mls @ 8.709 mls/hr 10/04/23 14:15 10/05/23 08:29 25,000 unit/ Sodium Chloride IV 0 units/kg/hr .Q24H [facility] 0 mls/hr Titration Protocol 12 UNITS/KG/HR Insulin Aspart 0 unit 10/04/23 21:00 10/05/23 06:22 Insulin Aspart (Novolog) 100 Unit/Ml Vial SQ Not Given ACHS [facility] Protocol Metoprolol Succinate 25 mg 10/05/23 09:00 10/05/23 08:30 Metoprolol Succinate (Er) 25 Mg Tab.Er.24h PO 25 mg BID [facility] Administration Montelukast Sodium 10 mg 10/04/23 21:00 10/04/23 20:48 Montelukast 10 Mg Tab PO 10 mg HS [facility] Administration Naloxone HCl 0.2 mg 10/04/23 14:07 Naloxone 0.4 Mg/Ml 1 Ml Vial IV Q2M PRN Opioid Reversal Pantoprazole Sodium 40 mg 10/05/23 07:30 10/05/23 06:24 Pantoprazole 40 Mg Tablet PO 40 mg [id number] [facility] Administration Intake and Output 10/04/23 10/05/23 10/05/23 22:59 06:59 14:59 Intake Total 144.366 80.5 216.352 Balance 144.366 80.5 216.352 Intake: Intake, IV Titration 144.366 80.5 106.352 Amount Diltiazem 125 mg In 10 80.5 Sodium Chloride 0.9% 100 ml @ 5 MG/HR 5 mls/hr IV .Q24H [facility] Rx#:[id number] Heparin Sod,Pork in 0.45% 59.366 106.352 NaCl 25,000 unit In 0.45 % NaCl 1 250ml.bag @ 12 UNITS/KG/HR 8.709 mls/hr IV .Q24H [facility] Rx#: [id number] Sodium Chloride 0.9% 1, 75 000 ml @ 75 mls/hr IV . [id number] [facility] Rx#:[id number] Oral 110 Other: Voiding Method Toilet Toilet # Voids 1 1 Weight 72.575 kg 10/05/23 04:07 10/05/23 04:07
--- NOTE | 2023-10-05 15:40 | P.DS ---
Providers Date of admission: 10/04/23 14:07 Attending physician: Pierre Meyer Consults: 10/04/23 14:07 Consult Physician Routine Consulting Provider: Marquise Park Consult Reason/Comments: A-fib RVR Do you want consulting provider notified?: Yes Primary care physician: Pierre Meyer [facility] Course: HISTORY OF PRESENT ILLNESS: 73-year-old one of my office patient with active history of Type 2 diabetes, asthma, hypertension, hyperlipidemia, chronic neuropathy, mild PAD with never been diagnosed with coronary artery disease in the past. Patient is very active volunteering at a [employer] on daily basis and still have a part-time job working over 40 hours a week between the 2 jobs without any complaint of chest pain or tightness. He is very compliant to his medication and reconstruction he apparently had an onset this morning of tingly feeling across his chest with some diaphoresis and slight shortness of breath with mild palpitation he went to the local [facility] station where was hooked to a heart monitor and found to be very irregular with pulse rate running around 120s to 160 beats per minutes was advised to go to the emergency department. Presented to the emergency department with above complaint his pulse rate on his EKG was to be around 130 was started on Cardizem drip brought the pulse rate down to 70s still slightly bit irregular. Laboratory evaluation showed normal WBC, hemoglobin, hematocrit, electrolyte and kidney function, troponin was normal no BNP was done thyroid test and magnesium were done as well were normal calcium level was slightly bit elevated 10.3 with a blood sugar at 154. Chest x-ray shows no infiltrate or pneumonia no cardiomegaly. Patient was started on heparin drip beside Cardizem drip and admitted to the hospital for the above complaint. October 05, 2023: Is doing very well pulse rate is down in the 70s still irregular he had 1 dose of metoprolol succinate yesterday he was switched to Eliquis 5 mg twice a day start this morning his heparin drip will be stopped also. His Cardizem drip Agree with the second dose of metoprolol succinate in the morning. He is scheduled to see cardiology and he is ct require to go for stress test whether this is need to be done as an inpatient or outpatient and will be rapid cardiology. Blood pressure was slightly low his lisinopril and hydrochlorothiazide can be reduced to 10/12.5 mg instead of 20 mg. Patient will be discharged either later today or tomorrow morning. REVIEW OF SYSTEMS: CONSTITUTIONAL: Well-developed no acute respiratory distress. EYES: No icterus sclerae, no conjunctivitis. EARS, NOSE, MOUTH, THROAT, and FACE: No sore throat, lymphadenopathy, carotid bruits or deformity. RESPIRATORY: Slight shortness of breath no cough or wheezes.. CARDIOVASCULAR: Positive chest pressure and discomfort positive PND orthopnea palpitation. GASTROINTESTINAL: No Abd pain, Nausea or vomiting, no Diarrhea or constipation, No GI Bleed, no distention or masses. GENITOURINARY: Negative for Hematuria or UTI, no kidney stones. INTEGUMENT/BREAST: Negative for any muscular injury with mild osteoarthritis.. HEMATOLOGIC/LYMPHATIC: Negative for bleed or purpura. MUSCULOSKELTAL: Negative for Myalgia or arthralgia. NEURLOGICAL: No LOC, Sz or syncope, blurred vision dizziness or abnormality.. Mild neuropathy sensation lower extremity. BEHAVIORAL/PSYCH: Negative. ENDOCRINE: Negative. PHYSICAL EXAMINATION: General Appearance: Alert, cooperative, no distress, appears stated age. Neck HEENT: Supple, no lymphadenopathy, no thyroid enlargement, no carotid bruits. Lungs: Clear to auscultation without crackles or wheezes no rhonchi, no deformity. Chest Wall: Chest wall normal expansion with deep inspiration no tenderness and no deformity was found on exam, no costochondral pain or discomfort. Heart: Irregular rate and rhythm, S1, S2 positive S3, very low-grade systolic murmur in the apex radiating toward the left second costal space. Back: Symmetric, no curvature, ROM normal, no CVA tenderness. Abdomen: Soft, non-tender, bowel sounds active all four quadrants, no masses, no organomegaly. Extremities: Extremities normal, atraumatic, no cyanosis or edema. Slight lack of sensation on the big toe. Pulses: 2+ and symmetric. Skin: Skin color, texture, tugor normal, no rashes or lesions. Neurologic: Alert oriented x3 cranial nerves II through XII intact, no motor deficit, no abnormal balance or gait. ASSESSMENT AND PLAN: _Atrial fibrillation with rapid ventricular response: Much better so far continue metoprolol succinate up to twice a day will be off Cardizem drip today continue Eliquis 5 mg twice a day as any medication. Patient is seeing cardiology further workup including an echo and stress test to be done. _Atypical angina with slight pressure discomfort: CK with troponin were negative but patient will benefit from going for stress test specially with his complaint. _Type 2 diabetes: Has been on Farxiga and metformin hold off on metformin for now continue glimepiride 2 mg daily Accu-Chek with sliding scale coverage will be done. _Hypertension: Blood pressure becomes slightly below will reduce lisinopril down to 10 mg and he is on Toprol-XL 25 mg twice a day. _Hyperlipidemia: Remain on atorvastatin 20 mg daily. _Stage II chronic kidney disease mostly stage creatinine was good today continue hydration watch kidney function by tomorrow continue to watch his urine output. _Mild peripheral arterial disease has been seen cardiology on medical management only. _Mild diabetic neuropathy: Not on any medication currently. _Asthma: Remain on Singulair and Xopenex inhaler. _GI prophylaxis: Patient will be on pantoprazole daily. Planning: Switch IV medication to oral with metoprolol succinate 25 mg twice a day and heparin drip was switched to Eliquis 5 mg twice a day patient seems to tolerate medication very well. Hospital course: He presented to the emergency department on October 04, 2023 with complaint of slight tightness and pressure with mild palpitation went to the [facility] department and found his pulse rate to be irregular at 100 2260 bpm very irregular. By the time he mated to the emergency department was in A-fib with RVR of 130s 150 beats per minutes was started on heparin drip and Cardizem drip at 5 mg an hour titrated up to 10 mg an hour to keep his pulse below 100. His CK and troponin came back negative, proBNP was not elevated, his EKG did not show any major change. Patient was kept in the hospital overnight start him on Eliquis 5 mg twice a day and metoprolol succinate 25 mg. His Cardizem drip start decrease the dose gradually titrate his metoprolol succinate up to 25 mg twice a day was able to tolerate it with no major complication or side effect. Patient was seen cardiology following day echocardiogram did not show any major impact on his heart function with well-preserved ejection fraction. Patient be discharged home today on oral metoprolol and Eliquis will be seen back in the office on 08 October will be seen cardiology on 12 October need to go to at least stress test by Seeing cardiology and if able to tolerate his medication well no need for any intervention afterward. Time spent on discharging patient was over 35 minutes. Patient Condition at Discharge: Fair Plan - Discharge Summary New Discharge Prescriptions: New Pantoprazole [Protonix] 40 mg PO AC-BRKFST #30 tab Apixaban [Eliquis] 5 mg PO BID #60 tab Metoprolol Succinate (ER) [Toprol XL] 25 mg PO BID #60 tab Continue Levalbuterol Hfa Inhaler [Xopenex Hfa Inhaler] 2 puff INHALATION RT-Q6H PRN PRN Reason: Shortness Of Breath Dapagliflozin Propanediol [Farxiga] 10 mg PO DAILY metFORMIN HCL 1,000 mg PO BID Atorvastatin [Lipitor] 20 mg PO DAILY Lisinopril-Hctz 20-25 mg [Zestoretic 20-25] 1 tab PO DAILY Montelukast [Singulair] 10 mg PO HS Glimepiride [Amaryl] 2 mg PO DAILY Discharge Medication List Atorvastatin [Lipitor] 20 mg PO DAILY 10/04/23 [History] Dapagliflozin Propanediol [Farxiga] 10 mg PO DAILY 10/04/23 [History] Glimepiride [Amaryl] 2 mg PO DAILY 10/04/23 [History] Levalbuterol Hfa Inhaler [Xopenex Hfa Inhaler] 2 puff INHALATION RT-Q6H PRN 10/04/23 [History] Lisinopril-Hctz 20-25 mg [Zestoretic 20-25] 1 tab PO DAILY 10/04/23 [History] Montelukast [Singulair] 10 mg PO HS 10/04/23 [History] metFORMIN HCL 1,000 mg PO BID 10/04/23 [History] Apixaban [Eliquis] 5 mg PO BID #60 tab 10/05/23 [Rx] Metoprolol Succinate (ER) [Toprol XL] 25 mg PO BID #60 tab 10/05/23 [Rx] Pantoprazole [Protonix] 40 mg PO AC-BRKFST #30 tab 10/05/23 [Rx] Follow up Appointment(s)/Referral(s): Garrett Manuel DO [STAFF PHYSICIAN] - 10/13/23 11:15 am Pierre Meyer MD [Primary Care Provider] - 10/09/23 9:00 am (With Rylan PIERRE, bring copy of current medications.) Patient Instructions/Handouts: A-fib (Atrial Fibrillation) (DC) Discharge Disposition: HOME SELF-CARE
[2023-10-05 16:07] LABS: Glucose,Whole Blood 234 mg/dL (70-110)
[2023-10-05 16:35] VITALS: BP 104/70; PULSE 62; RESP 16; TEMP 97.7
--- NOTE | 2023-10-05 18:08 | CA ---
Transthoracic Echo Report Name: Bimal Mancera Age: 73 Gender: M : 1950 Exam Date: 10/05/2023 08:39 Exam Location: [facility] Ht (in): 67 Wt (lb): 160 Ordering Physician: Pierre eMyer MD Attending/Referring Phys: Supervisor Compressed [employer]ast Sherly Patterson RCS Procedure CPT: Indications: lvfunction Cardiac Hx: Technical Quality: Technically difficult study Contrast 1: Definity Total Dose (mL): 2 Contrast 2: Total Dose (mL): MEASUREMENTS (Male / Female) Normal Values 2D ECHO LV Diastolic Diameter PLAX 4.4 cm 4.2 - 5.9 / 3.9 - 5.3 cm LV Systolic Diameter PLAX 2.9 cm IVS Diastolic Thickness 0.6 cm 0.6 - 1.0 / 0.6 - 0.9 cm LVPW Diastolic Thickness 0.9 cm 0.6 - 1.0 / 0.6 - 0.9 cm LV Relative Wall Thickness 0.3 RV Internal Dim ED PLAX 3.0 cm LVOT Diameter 2.0 cm LV Diastolic Volume MOD BP 86.4 cm??? 67 - 155 / 56 - 104 cm??? LV Systolic Volume MOD BP 32.5 cm??? 22 - 58 / 19 - 49 cm??? LV Ejection Fraction MOD BP 62.4 % >= 55 % LV Cardiac Index MOD BP 1882.0 cm???/min???m??? LV Diastolic Volume MOD 4C 97.4 cm??? LV Systolic Volume MOD 4C 37.2 cm??? LV Ejection Fraction MOD 4C 61.8 % LV Cardiac Index MOD 4C 2100.8 cm???/min???m??? LV Diastolic Length 4C 7.9 cm LV Systolic Length 4C 6.3 cm LV Diastolic Volume MOD 2C 76.8 cm??? LV Systolic Volume MOD 2C 28.8 cm??? LV Ejection Fraction MOD 2C 62.5 % LV Cardiac Index MOD 2C 1676.5 cm???/min???m??? LV Diastolic Length 2C 7.9 cm LV Systolic Length 2C 6.3 cm LA Volume 63.1 cm??? 18 - 58 / 22 - 52 cm??? LA Volume Index 33.9 cm???/m??? 16 - 28 cm???/m??? Ascending Aorta Diameter 3.9 cm DOPPLER AV Peak Velocity 137.1 cm/s AV Peak Gradient 7.5 mmHg AV Mean Velocity 97.3 cm/s AV Mean Gradient 4.2 mmHg AV Velocity Time Integral 28.1 cm LVOT Peak Velocity 85.8 cm/s LVOT Peak Gradient 2.9 mmHg LVOT Velocity Time Integral 16.9 cm LVOT Stroke Volume 53.9 cm??? LVOT Stroke Volume Index 29.3 ml/m??? LVOT Cardiac Index 1879.9 cm???/min???m??? AV Area Cont Eq vti 1.9 cm??? AV Area Cont Eq pk 2.0 cm??? TR Peak Velocity 233.9 cm/s TR Peak Gradient 21.9 mmHg Right Atrial Pressure 5.0 mmHg Pulmonary Artery Systolic Pressu 26.9 mmHg Right Ventricular Systolic Press 26.9 mmHg PV Peak Velocity 91.1 cm/s PV Peak Gradient 3.3 mmHg FINDINGS Left Ventricle Left ventricular ejection fraction is estimated at 60-65 %. Left ventricular cavity size normal. Left ventricular wall thickness normal. No obvious regional wall motion abnormalities. Right Ventricle Normal right ventricular size and function. Right ventricular systolic pressure within normal limits. Right Atrium Normal right atrial size. Left Atrium Mildly increased left atrial volume. Mildly increased left atrial area. Mitral Valve Structurally normal mitral valve. No mitral stenosis, regurgitation or prolapse. Aortic Valve Trileaflet aortic valve. No aortic valve stenosis. Trace aortic regurgitation. Tricuspid Valve Structurally normal tricuspid valve. No tricuspid stenosis, regurgitation or prolapse. Pulmonic Valve Pulmonic valve not well visualized. No pulmonic stenosis. No pulmonic regurgitation. Pericardium No pericardial effusion. Aorta Normal size aortic root and proximal ascending aorta. CONCLUSIONS Normal LV size and systolic function Mildly enlarged atria Previewed by: Dr. Parth Martinez MD (Electronically Signed) Final Date: 05 October 2023 18:08
== END 2023-10-05 16:34 | disposition home or self-care (01) | DRG 310 ==
LOC: EC 12:33 → 3SCARD 14:07
PROVIDERS: ADMIT Internal Medicine Geriatric Medicine; ATTEND Internal Medicine Geriatric Medicine
DX: I48.0 Paroxysmal atrial fibrillation (principal); E11.22 Type 2 diabetes mellitus with diabetic chronic kidney disease; E11.51 Type 2 diabetes mellitus with diabetic peripheral angiopathy without gangrene; E11.42 Type 2 diabetes mellitus with diabetic polyneuropathy; E11.65 Type 2 diabetes mellitus with hyperglycemia; I77.9 Disorder of arteries and arterioles, unspecified; I20.89 Other forms of angina pectoris; I12.9 Hypertensive chronic kidney disease with stage 1 through stage 4 chronic kidney disease, or unspecified chronic kidney disease; J45.909 Unspecified asthma, uncomplicated; E78.5 Hyperlipidemia, unspecified; N18.2 Chronic kidney disease, stage 2 (mild); I49.3 Ventricular premature depolarization; Z79.84 Long term (current) use of oral hypoglycemic drugs; Z79.899 Other long term (current) drug therapy; Z88.5 Allergy status to narcotic agent
CPT/HCPCS: 36415; 71046; 80053; 83735; 83880; 84443; 84484; 85025; 85379; 85610; 85730; 93005; 93306; 96365; 96366; 96367; 99291

== ENCOUNTER → 2024-05-30 | Outpatient (CLI) | payer MEDICARE ==
[2024-05-30 11:28] VITALS: BP 145/91; PULSE 106; RESP 16; TEMP 98
--- NOTE | 2024-05-30 11:55 | P.SLEEP ---
History of Present Illness DATE: 05/30/2024 CONSULTATION/NEW PATIENT EVALUATION HISTORY OF PRESENT ILLNESS/SLEEP-WAKE EVALUATION: 74-year-old gentleman had been evaluated in the sleep center for possible obstructive sleep apnea hypopnea syndrome. SLEEP SCHEDULE: Usually sleep schedule from 10 PM to 6 AM. FALLING ASLEEP: Patient may have difficulties with falling asleep, has TV set in bedroom. DURING SLEEP: Patient has mild snoring and wakes up from sleep 2 times with difficulties to initiate sleep again. Positive history of nocturia x 1. Positive history of dry mouth and sweating no history of hypnogogical hallucinations, sleep paralysis, or cataplexy. DURING THE DAY/WAKE STATE: During the day patient has difficulties to pay attention, has problems with memory. [place] sleepiness scale is increased to 12. Patient does not take naps. PAST MEDICAL HISTORY: Cardiac arrhythmia, hypertension, diabetes mellitus, asthma, hyperlipidemia. PAST SURGICAL HISTORY: Bilateral cataract surgery. MEDICATIONS: Please see below. SOCIAL HISTORY: Please see below. FAMILY HISTORY: Please see below. REVIEW OF SYSTEMS: Snoring, awakenings from sleep, sleepiness during the day. No fevers. No double vision. No recent chest pain. No shortness of breath. No abdominal pain. No bleeding episodes. No blood in urine. No seizure episodes. PHYSICAL EXAMINATION: GENERAL: A pleasant patient without any distress. VITAL SIGNS: Please see below, weight 156 pounds, BMI 25.9. HEENT: PERRLA, EOMI. Evaluation of oropharynx showed tongue protrudes midline, low position of soft palate Mallampati 4. NECK: Supple. No JVD. Thyroid is not palpable. 15-1/4 inches in circumference. LUNGS: Clear to percussion and to auscultation. Good air exchange. No wheezing or rhonchi. HEART: S1, S2 regular. No murmurs, gallops or rubs. ABDOMEN: Soft and nontender. Bowel sounds are present. No organomegaly appreciated. EXTREMITIES: No clubbing or cyanosis. GENERATOR SWITCHBOARD OPERATOR: Awake, alert, and oriented x3. Cranial nerves 2 to 7 intact. There is no fasciculation or atrophy noted. No focal deficits observed. ASSESSMENT: 1. Snoring, awakenings from sleep with difficulties to initiate sleep again, extremely low position of soft palate Mallampati 4, sleepiness during the day with [place] Sleepiness Scale increased to 12. Obstructive sleep apnea hypopnea syndrome. 2. Tachycardia in the office. 3. History of cardiac arrhythmia. 4. Hypertension. 5 diabetes mellitus. 6 . Asthma. 7. Hyperlipidemia. 8. Status post bilateral cataract surgery. 9 . Status post bilateral shoulder surgery. PLAN: 1. Polysomnography for evaluation of patient's breathing during sleep. 2. Following plan after reading sleep study. 3. Preferable position during sleep on the side. 4. No driving if patient feels any sleepiness. Patient is aware of civil and criminal liability for unsafe driving. 5. Sleep hygiene with regular sleep time for at least 7.5-8 hour s. 6. Watching weight. Thank you very much for referring this patient for consultation. Sincerely, Kristopher Cruz MD, PhD, FAASM. Diplomat of [employer], Sleep Medicine Board by [employer] Foreign Language Teacher of [facility] [place] cc: Parth Martinez MD Past Medical History Past Medical History: Hyperlipidemia, Hypertension, Osteoarthritis (OA) Additional Past Medical History / Comment(s): Small carotid tear History of Any Multi-Drug Resistant Organisms: None Reported Past Surgical History: Heart Catheterization, Orthopedic Surgery Additional Past Surgical History / Comment(s): Bilateral shoulders. Cataracts bilateral Past Anesthesia/Blood Transfusion Reactions: No Reported Reaction Past Psychological History: No Psychological Hx Reported Smoking Status: Never smoker Past Alcohol Use History: None Reported Past Drug Use History: None Reported - Past Family History Mother Additional Family Medical History / Comment(s): Stroke at 85 and epilespy Father Family Medical History: Diabetes Mellitus, Hypertension Medications and Allergies Home Medications Medication Instructions Recorded Confirmed Type Atorvastatin [Lipitor] 20 mg PO DAILY 10/04/23 05/30/24 History Dapagliflozin Propanediol [Farxiga] 10 mg PO DAILY 10/04/23 05/30/24 History Glimepiride [Amaryl] 2 mg PO DAILY 10/04/23 05/30/24 History Levalbuterol Hfa Inhaler [Xopenex 2 puff INHALATION RT-Q6H PRN 10/04/23 05/30/24 History Hfa Inhaler] Lisinopril-Hctz 20-25 mg 1 tab PO DAILY 10/04/23 05/30/24 History [Zestoretic 20-25] Montelukast [Singulair] 10 mg PO HS 10/04/23 05/30/24 History metFORMIN HCL 1,000 mg PO BID 10/04/23 05/30/24 History Apixaban [Eliquis] 5 mg PO BID #60 tab 10/05/23 05/30/24 Rx Metoprolol Succinate (ER) [Toprol 25 mg PO BID #60 tab 10/05/23 05/30/24 Rx XL] Pantoprazole [Protonix] 40 mg PO AC-BRKFST #30 tab 10/05/23 05/30/24 Rx Allergies Allergy/AdvReac Type Severity Reaction Status Date / Time codeine AdvReac Nausea & Verified 10/04/23 15:04 Vomiting Physical Exam Vitals: Vital Signs Temp Pulse Resp BP Pulse Ox 05/30/24 11:28 98 F 106 H 16 145/91 96 Intake and Output 05/29/24 05/30/24 05/30/24 22:59 06:59 14:59 Other: Weight 70.76 kg Sleep Note - Sleep Data ESS Total: 12 - Sleep Note Sleep Note: Temperature: 98 F Pulse Rate: 106 Respiratory Rate: 16 Blood Pressure: 145/91 SpO2: 96 Height: 5 ft 5 in Weight: 70.76 kg BMI: Neck Circumference: 15.2
== END ==
LOC: 3 N SLEEP 10:33
PROVIDERS: ATTEND Internal Medicine
DX: G47.33 Obstructive sleep apnea (adult) (pediatric) (principal); I10 Essential (primary) hypertension; E11.9 Type 2 diabetes mellitus without complications; J45.909 Unspecified asthma, uncomplicated; R00.0 Tachycardia, unspecified; E78.5 Hyperlipidemia, unspecified; Z98.890 Other specified postprocedural states; Z98.42 Cataract extraction status, left eye; Z98.41 Cataract extraction status, right eye; Z88.5 Allergy status to narcotic agent; Z79.84 Long term (current) use of oral hypoglycemic drugs; Z79.899 Other long term (current) drug therapy; Z79.01 Long term (current) use of anticoagulants; Z86.79 Personal history of other diseases of the circulatory system
CPT/HCPCS: 99211

== ENCOUNTER 2024-08-18 19:21 | Outpatient (CLI) | payer MEDICARE ==
--- NOTE | 2024-08-25 11:24 | P.PCN ---
Description of Procedure: POLYSOMNOGRAPHY REPORT PROCEDURE(S)/DATE(S): Polysomnography 08/18/2024 CLINICAL: Patient has been seen in the sleep center for evaluation of obstructive sleep apnea-hypopnea syndrome. Please see my consultation. Sleep study has been done for evaluation of patient breathing during the sleep. PROCEDURE: The standard montage for clinical polysomnography included the electroencephalogram, the electrooculogram, the mentalis surface electromyography and Lead II cardiography. The respiratory battery consisted of measurements of nasal/buccal air flow, pressure transducer measurements from nose, thoracic and/or abdominal effort and intercostal surface electromyography. Video monitoring has been done to check for any parasomnia events. Nocturnal oxyhemoglobin saturations were obtained by finger oximetry. Step-acevedo titration with positive airway pressure was utilized to control the respiratory events, if necessary. RESULTS: During the diagnostic sleep study sleep efficiency was slightly decreased to 76.6%. Latency to sleep onset was normal 8.5 min. Sleep architecture showed stage NI was increased to 14.8%, Delta sleep was absent 0%, REM sleep was in upper border of normal range 30.0%. Respiratory channel showed 0 obstructive apneas, 0 mixed apneas, 0 central apneas, 136 hypopneas with lowest oxygen level 76%. Total apnea hypopnea index was 25.1. Heart rate was in the range between 67 and 75, average 71. EMG showed 7.6 periodic limb movements per hour for total time of sleep with 0 micro-arousals per hour. Periodic limb movements documented only during 1 hour of sleep, subsequently index of periodic limb movements at that time will be significantly higher. IMPRESSIONS: 1. Moderate obstructive sleep apnea hypopnea syndrome. 2. Periodic limb movements have been documented for about 1 hour during sleep. Please see other impressions from consultation PLAN: 1. The patient will have PAP titration for correction of respiratory abnormalities during the sleep. 2. Please check iron profile including ferritin level. Low level of iron may increase the risk for periodic limb movements. 3. Sleep hygiene with regular time in bed for at least 7-1/2 hours. 4. No driving if feeling sleepiness. Thank you very much for allowing me to participate in the management of your patient. Sincerely, Kristopher Cruz MD, PhD, FAASM. Diplomat of [employer], Sleep Medicine Board by [employer] Unit Supervisor of [facility] [place] cc: Pierre Meyer MD
== END 2024-08-19 05:45 | disposition home or self-care (01) ==
LOC: 3 N SLEEP 19:21
PROVIDERS: ATTEND Internal Medicine
DX: G47.33 Obstructive sleep apnea (adult) (pediatric) (principal); G47.61 Periodic limb movement disorder; Z88.5 Allergy status to narcotic agent
CPT/HCPCS: 95810